=== PATIENT | male | born 1970 | race Caucasian/White ===

== ENCOUNTER → 2021-11-21 13:32 | Outpatient (BNVA) | payer OTHER, SELFPAY | PROVIDERS: PCP Physician Assistant Medical; Visit Provider Internal Medicine | DX: K29.40 Chronic atrophic gastritis without bleeding (principal); R23.2 Flushing; R61 Generalized hyperhidrosis | CPT/HCPCS: 99202 ==

== ENCOUNTER 2021-11-23 09:41 | Outpatient (REF) | payer OTHER, SELFPAY ==
[2021-11-23 10:37] LABS: Hematocrit 45.3 % (42.0-52.0); Hemoglobin 15.1 g/dl (14.0-18.0); Mean Corpuscular HGB Conc 33.3 g/dl (31.0-36.0); Mean Corpuscular Hemoglobin 30.8 pg (27.0-33.0); Mean Corpuscular Volume 92.3 fL (80.0-98.0); Mean Platelet Volume 9.9 fL (9.4-12.4); Platelet Count 228 X10*3/uL (160-400); Red Blood Count 4.91 X10*6/uL (4.60-5.80); Red Cell Distribution Width 12.2 % (11.0-16.0); White Blood Count 4.3 X10*3/uL (4.8-10.8)
[2021-11-23 11:59] LABS: Iron 160 mcg/dL (45-160); Percent Iron Saturation 37 % (15-50); Total Iron Binding Capacity 428 mcg/dL (228-428); Unsaturated Iron Binding 268 ug/dL
[2021-11-23 12:01] LABS: Ferritin 80 ng/mL (20-250)
[2021-11-23 12:40] LABS: Folate > 20.0 ng/mL (> or = 4.0); Vitamin B12 791 pg/mL (200-900)
[2021-11-26 11:52] LABS: Gastrin <15 pg/mL (<=100)
[2021-11-27 14:07] LABS: Metanephrine, Free 95 pg/mL (<=57); Normetanephrines, Free 174 pg/mL (<=148); Total Metanephrine, Free 269 pg/mL (<=205)
== END 2021-11-23 09:42 | disposition home or self-care (01) ==
LOC: HO.LAB 09:41
PROVIDERS: PCP Physician Assistant Medical; Visit Provider Internal Medicine
DX: R23.2 Flushing (principal); R61 Generalized hyperhidrosis
CPT/HCPCS: 36415; 82607; 82728; 82746; 82941; 83520; 83540; 83835; 85027

== ENCOUNTER 2021-11-28 10:35 | Outpatient (REF) | payer OTHER, SELFPAY ==
[2021-12-04 12:35] LABS: Creatinine Random Urine 116 mg/dL (20-320); Metanephrine, Free Rand Ur 114 mcg/g cr (21-153); Normetanephrine, Free Rand Ur 223 mcg/g cr (108-524); Total Metanephrine, Free RU 337 mcg/g cr (149-603)
[2021-12-05 17:26] LABS: Hydroindolacetic Acid,5- 3.7 mg/24 h (< OR = 6.0); Total Volume 900 mL
== END 2021-11-28 10:36 | disposition home or self-care (01) ==
LOC: HO.LNP 10:35
PROVIDERS: Visit Provider Internal Medicine
DX: R23.2 Flushing (principal); R61 Generalized hyperhidrosis
CPT/HCPCS: 81050; 83497; 83835

== ENCOUNTER → 2021-12-04 15:03 | Outpatient (BNVA) | payer OTHER, SELFPAY | PROVIDERS: PCP Physician Assistant Medical; Visit Provider Internal Medicine | DX: R23.2 Flushing (principal); R61 Generalized hyperhidrosis; R79.89 Other specified abnormal findings of blood chemistry; K29.40 Chronic atrophic gastritis without bleeding | CPT/HCPCS: 99212 ==

== ENCOUNTER → 2021-12-06 12:01 | Outpatient (BNVA) | payer OTHER, SELFPAY | PROVIDERS: PCP Physician Assistant Medical; Visit Provider Internal Medicine Endocrinology, Diabetes & Metabolism | DX: R79.89 Other specified abnormal findings of blood chemistry (principal); R23.2 Flushing; R61 Generalized hyperhidrosis | CPT/HCPCS: 99202 ==

== ENCOUNTER 2021-12-10 07:44 | Outpatient (REF) | payer OTHER, SELFPAY ==
--- NOTE | ~2021-12-10 | CT_ITS ---
EXAMINATION: CT ABDOMEN AND PELVIS WITH CONTRAST CLINICAL INFORMATION: Abnormal findings of blood chemistry. COMPARISON: None TECHNIQUE: Multidetector volumetric images were obtained from the superior aspect of the liver through the pubic symphysis following administration 85 mL of Omnipaque 350 intravenous contrast. Sagittal and coronal reformatted images were obtained on the technologist's workstation. Oral contrast: No This CT examination was performed using dose optimization techniques as appropriate, variously including the following: *Automated exposure control *Adjustment of mA and/or kV according to patient size (this includes techniques or standardized protocols for targeted exams where dose is matched to indication/reason for exam; i.e. extremities or head) *Use of iterative reconstruction technique DLP: 181 mGy-cm FINDINGS: LUNG BASES: Normal. No pulmonary consolidation or pleural effusion. LIVER: Liver has normal size and contour. Normal variation in anatomy of the left hepatic lobe which is elongated and contacts the spleen in the left upper quadrant. No focal liver lesion. GALLBLADDER AND BILIARY TREE: Gallbladder is without radiopaque stones, wall thickening or pericholecystic fluid. No dilated bile ducts. PANCREAS: Normal. No edema, pancreatic ductal dilatation or mass. SPLEEN: Normal. ADRENAL GLANDS: Normal. KIDNEYS AND URETERS: Kidneys are normal in size and enhance symmetrically. No renal mass, hydronephrosis or perinephric edema. There are a few small, approximately 0.2 cm sized calyceal stones of the right kidney. No large calculi. The ureters are unremarkable. BLADDER: Normal. No calculi or wall thickening. BOWEL AND PERITONEUM: Stomach is unremarkable. No dilated loops of bowel. The appendix is not definitively seen; however, no inflammatory changes in the right lower quadrant. No overt bowel wall thickening or mesenteric fat stranding. No free fluid or pneumoperitoneum. ABDOMINAL WALL: Unremarkable. VASCULATURE: Abdominal aorta is normal in caliber and its branches are widely patent. 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 LYMPH NODES: No pathologic sized lymph nodes in the abdomen or pelvis. No inguinal lymphadenopathy. PELVIC VISCERA: Unremarkable. SKELETAL: Unremarkable. CT/CT abdomen pelvis w IV con IMPRESSION: * No acute imaging abnormalities in the abdomen or pelvis. * No evidence of abdominal mass or lymphadenopathy. * Small stones of the right kidney. No ureteral stones or hydroureteronephrosis.
[2021-12-10 08:45] LABS: Free T4 (Free Thyroxine) 1.22 ng/dL (0.71-1.85); Thyroid Stimulating Hormone 2.48 uIU/mL (0.32-4.0)
[2021-12-10] MEDS: iohexoL 350 MG/ML 100 ML INFUS..BTL IV (09:13)
[2021-12-10 09:26] LABS: Cortisol Random 19.7 ug/dL
[2021-12-11 09:43] LABS: Creatinine POC 0.5 mg/dL (0.5-1.4); GFR POC > 60
== END 2021-12-10 07:45 | disposition home or self-care (01) ==
LOC: HO.CT 07:44
PROVIDERS: Absent Provider Internal Medicine Endocrinology, Diabetes & Metabolism; PCP Physician Assistant Medical; Visit Provider Internal Medicine
DX: R61 Generalized hyperhidrosis (principal); R23.2 Flushing; R79.89 Other specified abnormal findings of blood chemistry
CPT/HCPCS: 36415; 74177; 82533; 82565; 84439; 84443; Q9967

== ENCOUNTER → 2022-01-29 13:48 | Outpatient (BNVA) | payer OTHER, SELFPAY | PROVIDERS: PCP Physician Assistant Medical; Visit Provider Internal Medicine | DX: R23.2 Flushing (principal); R61 Generalized hyperhidrosis; K29.40 Chronic atrophic gastritis without bleeding | CPT/HCPCS: 99212 ==

== ENCOUNTER 2022-02-28 08:52 | Day surgery (SDC) | payer OTHER, SELFPAY ==
[2022-02-25 15:40] VITALS: BMI 16.5
--- NOTE | 2022-02-27 13:09 | P.CONAN_ITS ---
Documented by User: Christiane Fowler NP 02/27/22 13:19 HPI - Anesthesia Eval Consult details Narrative: 51yo M for Upper Endoscopy PMFSH Active Problems Active Problems: All Active Problems (Updated 02/26/22 @ 14:30 by Dianne Mariee, RN) Abnormal flushing and sweating (Acute) Atrophic gastritis (Acute) Elevated plasma metanephrines (Acute) Past Medical History Medical History (Updated 02/26/22 @ 14:30 by Dianne Mariee, RN) Anxiety CAD (coronary artery disease) Carotid stenosis, bilateral Chest pain GERD (gastroesophageal reflux disease) History of tachycardia Hx of renal calculi IBS (irritable bowel syndrome) Palpitations Family History Family History Maternal Grandmother Pacemaker Mother Cataract Glaucoma Carotid stenosis Surgical History Surgical History (Updated 02/25/22 @ 15:38 by Dianne Mariee RN) History of esophagogastroduodenoscopy (EGD) Hx of colonoscopy Social History Social History Household Members: Other Are you a primary career development associate to a significant other at home: No Do you presently have visiting nurse or other home services: No Alcohol intake: never Patient Tobacco Use Status: Never used Tobacco Are you DNR?: No Advance Directives: No Advance Directives Information Provided: Yes Advance Directives on File: No Meds Allergies Allergy/AdvReac Type Severity Reaction Status Date / Time No Known Allergies Allergy Verified 01/29/22 13:59 Home Medications Medication Instructions Recorded Confirmed Last Taken Type atenolol 25 mg tablet 25 mg PO DAILY 11/21/21 02/25/22 02/28/22 History famotidine 20 mg tablet 20 mg PO DAILY PRN Acid Reflux 11/21/21 02/25/22 Unknown History ketoconazole 2 % shampoo topical 11/21/21 Unknown History polyethylene glycol 3350 17 17 g PO DAILY 11/21/21 Unknown History gram/dose oral powder (Gavilax) fluoxetine 10 mg capsule (Prozac) 5 mg PO DAILY 12/06/21 02/25/22 Unknown History lorazepam 0.5 mg tablet 0.5 mg PO DAILY PRN anxiety 01/29/22 Unknown History nortriptyline 10 mg capsule 10 mg PO BEDTIME 01/29/22 Unknown History sucralfate 100 mg/mL oral 10 ml PO QID 01/29/22 Unknown History suspension Exam Exam Date and Time: February 27, 2022 1309 Height,Weight and Vital Signs: Height 5 ft 10 in Weight 52.163 kg Pertinent Lab Results Pertinent Lab Results: Laboratory Tests 11/23/21 10:29 WBC 4.3 L Hgb 15.1 Hct 45.3 Plt Count 228 Narrative Narrative: EKG 07/2021 NSR @ 90 ECHO 05/2021 1. Nml biV size and function. Nml LV regional wall motion with EF 55-60%. 2. Nml LV diastolic function 3. No hemodynamically signif valve disease Carotid duplex 06/2021 50-69% stenosis R ICA <50% stenosis L ICA Exercise stress 01/2022 Negative stress test Assessment and Plan Assessment Anesthesia Assessment: Chart Reviewed Documented by User: Suzie Gloria MD 02/28/22 09:57 HPI - Anesthesia Eval Consult details Narrative: 51yo M for Upper Endoscopy [facility] Past Medical History Medical History (Updated 02/26/22 @ 14:30 by Dianne Mariee RN) Anxiety CAD (coronary artery disease) Carotid stenosis, bilateral Chest pain GERD (gastroesophageal reflux disease) History of tachycardia Hx of renal calculi IBS (irritable bowel syndrome) Palpitations Family History Family History Maternal Grandmother Pacemaker Mother Cataract Glaucoma Carotid stenosis Family history of problems with anesthesia: No Surgical History Surgical History (Updated 02/25/22 @ 15:38 by Dianne Mariee RN) History of esophagogastroduodenoscopy (EGD) Hx of colonoscopy History of Problems with Anesthesia: No Social History Social History Household Members: Other Are you a primary career development associate to a significant other at home: No Do you presently have visiting nurse or other home services: No Alcohol intake: never Patient Tobacco Use Status: Never used Tobacco Are you DNR?: No Advance Directives: No Advance Directives Information Provided: Yes Advance Directives on File: No Meds Allergies Allergy/AdvReac Type Severity Reaction Status Date / Time No Known Allergies Allergy Verified 01/29/22 13:59 Home Medications Medication Instructions Recorded Confirmed Last Taken Type atenolol 25 mg tablet 25 mg PO DAILY 11/21/21 02/25/22 02/28/22 History famotidine 20 mg tablet 20 mg PO DAILY PRN Acid Reflux 11/21/21 02/25/22 Unknown History ketoconazole 2 % shampoo topical 11/21/21 Unknown History polyethylene glycol 3350 17 17 g PO DAILY 11/21/21 Unknown History gram/dose oral powder (Gavilax) fluoxetine 10 mg capsule (Prozac) 5 mg PO DAILY 12/06/21 02/25/22 Unknown History lorazepam 0.5 mg tablet 0.5 mg PO DAILY PRN anxiety 01/29/22 Unknown History nortriptyline 10 mg capsule 10 mg PO BEDTIME 01/29/22 Unknown History sucralfate 100 mg/mL oral 10 ml PO QID 01/29/22 Unknown History suspension Exam Airway Mallampati Class: II TM Dist: >3cm Neck ROM: Full Heart: RR Lungs: CTA Assessment and Plan Final Anesthetic Review Family History of Problems with Anesthesia: No History of Problems with Anesthesia: No NPO: Yes ASA Class: II Final Preanesthetic Review: No Changes in Pt Med Stat, Meds/Allgs Chart Reviewed, Consent Obtained/Reviewed and Anes Risks/Benef Reviewed Patient Risk: Low Procedure Risk: Low Anesthetic Plan Anesthetic Plan: MAC: Disposition: Standard PACU
[2022-02-28 09:28] VITALS: BP 109/62; PULSE 80; RESP 18; TEMP 37; O2SAT 98; BMI 21.5
[2022-02-28] MEDS: Lactated Ringers 1,000 ML 100 ML IVCONT (09:43)
--- NOTE | 2022-02-28 10:12 | MHC.SHP ---
Pre-Procedural Eval Section A Date of Service: 02/28/22 The History & Physical has been completed within 30 days and I have reviewed it.: Yes Section B Chief Complaint: Unspecified abdominal pain Allergies: Allergies Allergy/AdvReac Type Severity Reaction Status Date / Time No Known Allergies Allergy Verified 01/29/22 13:59 Plan Diagnosis/Plan: Unchanged I have reviewed the history and physical and performed a pertinent physical examination on my patient. No changes have occurred unless specified. Time Spent With Patient Time: Total time managing care of this patient today ____ minutes.
--- NOTE | 2022-02-28 10:35 | P.OP_ITS ---
Operative Note Operative Note Date of Service: 02/28/22 Narrative: Procedure: Esophagogastroduodenoscopy Endoscopist: Tamara Anders MD Indication: Abdominal pain, atrophix gastritis Anesthesia Provider: Dr Toni Anand Anesthesia Type: MAC ?? EGD Procedure:?? The procedure, indications, preparation and potential complications were reviewed with the patient, who indicated understanding and gave written informed consent to proceed. A physical exam was performed. The endoscope was introduced through the mouth, and advanced to the second part of duodenum. The mucosa was carefully examined on slow withdrawal of the endoscope. The patient tolerated the procedure well. There were no immediate c omplications.? ? EGD Findings:? * Esophagus:? Normal mucosa noted in the entire esophagus. The Z line was at 45. * Stomach:? Small erosions and scant flecks of heme were noted in the stomach. Thinning of gastric lining with underlying prominent vasculature was seen in body of the stomach. No blue crest sign was appreciated. Given hx of atrophic gastritis, Mary Kay protocol biopsies were obtained to surveil for intestinal metaplasia and to r/o H pylori. * Duodenum:? Normal mucosa was noted in the whole of the examined duodenum. ? EGD Impressions:? * Normal esophagus * Gastritis (biopsies) * Normal duodenum ?? Recommendations:?? * Follow biopsy results. Our office will call or send a letter with results within 7-10 days. * Start/continue PPI therapy. * If H pylori +, patient will be prescribed eradication therapy followed by test of cure. * Indication and timing of follow up surveillance EGD will be guided by path results * Avoid NSAIDs. Above has been reviewed with the patient. Relevant educational hand outs were provided at discharge.
[2022-02-28 10:56] VITALS: BP 108/68; PULSE 73; RESP 16; TEMP 36.9; O2SAT 98
[2022-02-28 11:11] VITALS: BP 106/74; PULSE 71; RESP 16; TEMP 36.9; O2SAT 98
== END 2022-02-28 11:47 | disposition home or self-care (01) ==
PROVIDERS: PCP Physician Assistant Medical; Visit Provider Internal Medicine
PROC: 0DJ08ZZ Inspection of Upper Intestinal Tract, Via Natural or Artificial Opening Endoscopic (ICD-10-PCS; CPT 43235; principal; 2022-02-28 10:10)
DX: K29.40 Chronic atrophic gastritis without bleeding (principal); K58.9 Irritable bowel syndrome, unspecified; I25.10 Atherosclerotic heart disease of native coronary artery without angina pectoris; R00.0 Tachycardia, unspecified; F41.1 Generalized anxiety disorder; R23.2 Flushing; R61 Generalized hyperhidrosis; Z79.899 Other long term (current) drug therapy
CPT/HCPCS: 43239; 88305; 88342; J3010

== ENCOUNTER → 2022-04-15 09:36 | Outpatient (BNVA) | payer OTHER, SELFPAY | PROVIDERS: PCP Physician Assistant Medical; Visit Provider Internal Medicine | DX: R10.31 Right lower quadrant pain (principal); R63.0 Anorexia; Z68.1 Body mass index [BMI] 19.9 or less, adult; Z98.890 Other specified postprocedural states | CPT/HCPCS: 99212 ==